=== PATIENT | male | born 1985 | race American Indian/Alaskan Native ===

== ENCOUNTER 2021-04-09 03:32 | Emergency (ER) | payer SELFPAY ==
[2021-04-09 03:56] VITALS: BP 131/76
--- NOTE | 2021-04-09 04:25 | XRay Report ---
Left ankle 3 views INDICATION: Left ankle pain following injury IMPRESSION: No fracture or subluxation is identified. Signer Name: Ridge Blankenship MD Signed: 04/09/2021 4:20 AM Workstation Name: [id number]
[2021-04-09] MEDS ORDERED: ONDANSETRON 4 MG ODT TAB PO ONE (05:32)
[2021-04-09] MEDS ORDERED: IBUPROFEN 600 MG TAB PO ONE (05:32)
[2021-04-09] MEDS ORDERED: HYDROcodone/ACETAMINOPHEN 5-325 MG TAB PO ONE (05:32)
--- NOTE | 2021-04-09 05:37 | Emergency Department Report ---
ED Fall HPI - General Chief Complaint: Extremity Injury, Lower Stated Complaint: FALL/ LEFT ANKLE INJURY Source: patient Mode of arrival: Wheelchair - History of Present Illness Initial Comments: Patient is a 36-year-old -[place] male with no past medical history presents to the ED with complaint of acute onset persistent severe left ankle pain and swelling after he slipped off a chair and fell down twisting his left ankle about 6 hours ago. Patient states that he is unable to bear weight on the left ankle because of severe pain. Patient denies head or neck injuries, back pain, chest pain, shortness of breath, numbness and tingling or weakness of lower extremities bilaterally, hip pain, cough, abdominal pain, change in vision, dizziness or syncope. MD Complaint: fall, other (left ankle pain) -: Sudden, hour(s) (6) Fall From: chair (Fell off a chair and twisted his left ankle) When Fall Occurred: 4-6 hours [employer] Fall Witnessed: yes, by family Place Fall Occurred: home Loss of Consciousness: none Prolonged Down Time?: no Symptoms Prior to Fall: none Location: other (Left ankle pain) Location - Extremities: Left: Ankle (Left ankle pain and swelling) Severity: severe Severity scale (0 -10): 8 Quality: sharp, aching Context: tripped/slipped Associated Symptoms: denies: headache, neck pain, weakness, chest paint, abdominal pain, hematuria, unable to walk, lightheaded, vertigo, confusion - Related Data Previous Rx's Medication Instructions Recorded Last Taken Type Ciprofloxacin HCl [Ciprofloxacin 500 mg PO Q12H #20 tab 02/15/16 Unknown Rx TAB] oxyCODONE /ACETAMINOPHEN [Percocet 1 tab PO TID PRN #15 tablet 02/15/16 Unknown Rx 5/325 mg] Metaxalone [Skelaxin] 800 mg PO TID PRN #21 tablet 03/21/16 Unknown Rx Baclofen 20 mg PO Q12H PRN #20 tablet 04/09/21 Unknown Rx Ibuprofen [Motrin] 800 mg PO Q8HR PRN #30 tablet 04/09/21 Unknown Rx traMADoL [Ultram 50 MG tab] 50 mg PO Q6HR PRN #12 tablet 04/09/21 Unknown Rx Allergies Allergy/AdvReac Type Severity Reaction Status Date / Time No Known Allergies Allergy Unverified 03/06/14 07:28 ED Review of Systems ROS: Stated complaint: FALL/ LEFT ANKLE INJURY Other details as noted in HPI Constitutional: denies: chills, fever Eyes: denies: eye pain, eye discharge, vision change ENT: denies: ear pain, throat pain Respiratory: denies: cough, shortness of breath, wheezing Cardiovascular: denies: chest pain, palpitations Endocrine: no symptoms reported Gastrointestinal: denies: abdominal pain, nausea, diarrhea Genitourinary: denies: urgency, dysuria Musculoskeletal: joint swelling (Left ankle swelling), arthralgia (Left ankle pain and swelling). denies: back pain Skin: denies: rash, lesions Neurological: denies: headache, weakness, paresthesias Psychiatric: denies: anxiety, depression Hematological/Lymphatic: denies: easy bleeding, easy bruising ED Past Medical Hx - Past Medical History Previous Medical History?: No Hx Congestive Heart Failure: No Hx Diabetes: No Hx Asthma: No Hx COPD: No Hx HIV: No - Surgical History Past Surgical History?: No - Social History Smoking Status: Heavy Tobacco Smoker Substance Use Type: None - Medications Home Medications: Home Medications Medication Instructions Recorded Confirmed Last Taken Type Ciprofloxacin HCl [Ciprofloxacin 500 mg PO Q12H #20 tab 02/15/16 Unknown Rx TAB] oxyCODONE /ACETAMINOPHEN [Percocet 1 tab PO TID PRN #15 tablet 02/15/16 Unknown Rx 5/325 mg] Metaxalone [Skelaxin] 800 mg PO TID PRN #21 tablet 03/21/16 Unknown Rx Baclofen 20 mg PO Q12H PRN #20 tablet 04/09/21 Unknown Rx Ibuprofen [Motrin] 800 mg PO Q8HR PRN #30 tablet 04/09/21 Unknown Rx traMADoL [Ultram 50 MG tab] 50 mg PO Q6HR PRN #12 tablet 04/09/21 Unknown Rx ED Physical Exam - General Limitations: Physical Limitation General appearance: alert, in no apparent distress - Head Head exam: Present: atraumatic, normocephalic, normal inspection - Eye Eye exam: Present: normal appearance, PERRL, EOMI Pupils: Present: normal accommodation - ENT ENT exam: Present: normal exam, normal orophraynx, mucous membranes moist, TM's normal bilaterally, normal external ear exam - Neck Neck exam: Present: normal inspection, full ROM - Respiratory Respiratory exam: Present: normal lung sounds bilaterally. Absent: respiratory distress, wheezes, rales, chest wall tenderness, accessory muscle use, decreased breath sounds, prolonged expiratory - Cardiovascular Cardiovascular Exam: Present: regular rate, normal rhythm, normal heart sounds. Absent: systolic murmur, diastolic murmur, rubs, gallop - GI/Abdominal GI/Abdominal exam: Present: soft, normal bowel sounds. Absent: tenderness, guarding, hyperactive bowel sounds, hypoactive bowel sounds - Extremities Exam Extremities exam: Present: normal inspection, tenderness (Palpable severe left ankle tenderness with mild swelling and limited range of motion due to pain), normal capillary refill, joint swelling (Mild left ankle swelling). Absent: full ROM (Limited range of motion of left ankle due to severe pain), pedal edema, calf tenderness - Back Exam Back exam: Present: normal inspection, full ROM. Absent: tenderness, CVA tenderness (L), muscle spasm, paraspinal tenderness, vertebral tenderness - Neurological Exam Neurological exam: Present: alert, oriented X3, CN II-XII intact, normal gait, reflexes normal - Psychiatric Psychiatric exam: Present: normal affect, normal mood - Skin Skin exam: Present: warm, dry, intact, normal color. Absent: rash ED Course Vital Signs 04/09/21 03:54 Temperature 99.4 F Pulse Rate 93 H Respiratory 18 Rate Blood Pressure 131/76 O2 Sat by Pulse 98 Oximetry ED Medical Decision Making - Radiology Data Radiology results: report reviewed, image reviewed [facility] [address] [place] [address] XRay Report Signed Patient: AUTHOR SANIYA CONNELLY MR#: [id number] : 1985 Acct:[id number] Age/Sex: 36 / M ADM Date: 04/09/21 Loc: ED Attending Dr: Ordering Physician: ED MD CUBA Date of Service: 04/09/21 Procedure(s): XR ankle 3+V LT Accession Number(s): [id number] cc: ED MD CUBA Fluoro Time In Minutes: Left ankle 3 views INDICATION: Left ankle pain following injury IMPRESSION: No fracture or subluxation is identified. Signer Name: Ridge Blankenship MD Signed: 04/09/2021 4:20 AM Workstation Name: [id number] Transcribed By: Dictated By: Ridge Blankenship MD Electronically Authenticated By: Ridge Blankenship MD Signed Date/Time: 04/09/21419 DD/ 9 TD/TT: - Medical Decision Making This is a 36-year-old -[place] male with no past medical history presents to the ED with complaint of acute onset persistent severe left ankle pain and swelling after he slipped off a chair and fell down twisting his left ankle about 6 hours ago. Patient states that he is unable to bear weight on the left ankle because of severe pain. In the ED, patient is alert and oriented x3 and is not in any distress but appears to be in significant pain. Patient is however hemodynamically stable. Patient was treated for pain in the ED and left ankle x-ray showed no acute fractures or subluxations. The patient's left ankle was splinted with Toby wrap and the patient given crutches to aid in ambulation. On reevaluation, patient's pain is well controlled medications. Patient was th erefore discharged home on pain medications and advised to follow-up with his primary care physician in 5 to 7 days for reevaluation. Patient was advised return to the ED immediately if symptoms get worse. - Differential Diagnosis Ankle fracture; ankle sprain; ankles muscle strain; ankle contusion Critical care attestation.: If time is entered above; I have spent that time in minutes in the direct care of this critically ill patient, excluding procedure time. ED Disposition Clinical Impression: Severe sprain of left ankle Qualifiers: Encounter type: initial encounter Qualified Code(s): S93.402A - Sprain of unspecified ligament of left ankle, initial encounter Muscle strain of left ankle Qualifiers: Encounter type: initial encounter Qualified Code(s): S96.912A - Strain of unspecified muscle and tendon at ankle and foot level, left foot, initial encounter Disposition: TO HOME OR SELFCARE Is pt being admited?: No Does the pt Need Aspirin: No Condition: Stable Instructions: Ankle Sprain, [id number], Muscle Strain, [id number] Additional Instructions: The left ankle x-ray showed no acute fractures or subluxations. Your injuries likely musculoskeletal due to severe sprain or muscle strain of the left ankle joint. Therefore take medications with food, drink plenty of fluids and follow- up with your primary care physician in 5 to 7 days for reevaluation. Return to the ED immediately if symptoms get worse. Prescriptions: Baclofen 20 mg PO Q12H PRN #20 tablet PRN Reason: Muscle Spasm Ibuprofen [Motrin] 800 mg PO Q8HR PRN #30 tablet PRN Reason: Pain , Severe (7-10) traMADoL [Ultram 50 MG tab] 50 mg PO Q6HR PRN #12 tablet PRN Reason: Pain Referrals: [facility] [Provider Group] - 3-5 Days Forms: Work/School Release Form(ED) Time of Disposition: 05:38 Print Language: GREENLANDIC
== END 2021-04-09 06:01 | disposition home or self-care (01) ==
LOC: ED 03:32
DX: S93.402A Sprain of unspecified ligament of left ankle, initial encounter (principal); S96.912A Strain of unspecified muscle and tendon at ankle and foot level, left foot, initial encounter; F17.200 Nicotine dependence, unspecified, uncomplicated; Z79.899 Other long term (current) drug therapy; W01.0XXA Fall on same level from slipping, tripping and stumbling without subsequent striking against object, initial encounter; Y93.89 Activity, other specified; Y92.89 Other specified places as the place of occurrence of the external cause; Y99.8 Other external cause status
CPT/HCPCS: 99283; Q0162

== ENCOUNTER 2021-07-05 14:34 | Emergency (ER) | payer SELFPAY ==
[2021-07-05] MEDS ORDERED: ASPIRIN 325 MG TAB PO ONE (14:39)
--- NOTE | 2021-07-05 15:05 | Emergency Department Report ---
ED Chest Pain HPI - General Chief Complaint: Chest Pain Stated Complaint: SOB CHEST TIGHT RT ARM HURTS Time Seen by Provider: 07/05/21 14:50 Source: patient Mode of arrival: Ambulatory Limitations: No Limitations - History of Present Illness Initial Comments: 36-year-old male who denies any significant past medical history presents to the ER today with complaints of shortness of breath and chest tightness. Patient states that he noticed that he was short of breath when he woke up in the middle of the night yesterday to use the bathroom. Patient states that the shortness of breath was not any worse or better when he walked to the bathroom, but he states that when he went back to lay down he was having difficulty resting and getting comfortable because he felt short of breath. He states that today he noticed mild substernal chest tightness which he describes as a 1 out of 10. He states that the shortness of breath today is much improved compared to yesterday. He states that he came in because he was concerned and wanted to get checked out. He admits that he was diagnosed with COVID-19 around weekend but during that time he had no chest pain or cough. He denies any diagnosis of pneumonia. He denies any coughing since his symptoms started, as well as denies any nausea, vomiting, or wheezing. He states that he did notice mild right calf pain Friday, but attributed it to him working all day on his feet at work. He denies any lower extremity swelling. He denies any recent travel. Denies any other risk factors for PE/DVT. Patient states that he vapes "a lot". He does drink liquor every other day. He denies any other illicit drug use or marijuana use. He denies any family history of coronary artery disease. MD Complaint: chest pain, other (SOB) -: days(s) (1) - Related Data Previous Rx's Medication Instructions Recorded Last Taken Type Ciprofloxacin HCl [Ciprofloxacin 500 mg PO Q12H #20 tab 02/15/16 Unknown Rx TAB] oxyCODONE /ACETAMINOPHEN [Percocet 1 tab PO TID PRN #15 tablet 02/15/16 Unknown Rx 5/325 mg] Metaxalone [Skelaxin] 800 mg PO TID PRN #21 tablet 03/21/16 Unknown Rx Baclofen 20 mg PO Q12H PRN #20 tablet 04/09/21 Unknown Rx Ibuprofen [Motrin] 800 mg PO Q8HR PRN #30 tablet 04/09/21 Unknown Rx traMADoL [Ultram 50 MG tab] 50 mg PO Q6HR PRN #12 tablet 04/09/21 Unknown Rx Albuterol Mdi (or & Nicu Only) 2 puff IH QID PRN #8.5 gram 07/05/21 Unknown Rx [ProAir HFA Inhaler] Allergies Allergy/AdvReac Type Severity Reaction Status Date / Time No Known Allergies Allergy Unverified 12/16/13 07:28 Heart Score - HEART Score History: Slightly suspicious EKG: Normal Age: < 45 Risk factors: 1-2 risk factors Troponin: < normal limit HEART Score: 1 - EKG Read Time Time EKG Completed: 14:41 EKG Read Time: 14:46 - Critical Actions Critical Actions: 0-3 pts:0.9-1.7%risk of adverse cardiac event.Candidate for discharge ED Review of Systems ROS: Stated complaint: SOB CHEST TIGHT RT ARM HURTS Other details as noted in HPI Comment: All other systems reviewed and negative Constitutional: denies: chills, fever Eyes: denies: eye pain, eye discharge, vision change ENT: denies: ear pain, throat pain, dental pain, hearing loss, epistaxis, congestion Respiratory: shortness of breath. denies: cough, wheezing Cardiovascular: chest pain. denies: palpitations, dyspnea on exertion, orthopnea, edema, syncope, paroxysmal nocturnal dyspnea Gastrointestinal: denies: abdominal pain, nausea, diarrhea, constipation, hematemesis, melena, hematochezia Genitourinary: denies: urgency, dysuria, frequency, hematuria, discharge, testicular pain, testicular mass Musculoskeletal: denies: back pain, joint swelling, arthralgia Skin: denies: rash, lesions, change in color, change in hair/nails, pruritus Neurological: denies: headache, weakness, numbness, paresthesias, confusion, abnormal gait, vertigo Psychiatric: denies: anxiety, depression, auditory hallucinations, visual hallucinations, homicidal thoughts, suicidal thoughts Hematological/Lymphatic: denies: easy bleeding, easy bruising ED Past Medical Hx - Past Medical History Previous Medical History?: No Hx Congestive Heart Failure: No Hx Diabetes: No Hx Asthma: No Hx COPD: No Hx HIV: No - Surgical History Past Surgical History?: No - Social History Smoking Status: Heavy Tobacco Smoker Substance Use Type: None - Medications Home Medications: Home Medications Medication Instructions Recorded Confirmed Last Taken Type Ciprofloxacin HCl [Ciprofloxacin 500 mg PO Q12H #20 tab 02/15/16 Unknown Rx TAB] oxyCODONE /ACETAMINOPHEN [Percocet 1 tab PO TID PRN #15 tablet 02/15/16 Unknown Rx 5/325 mg] Metaxalone [Skelaxin] 800 mg PO TID PRN #21 tablet 03/21/16 Unknown Rx Baclofen 20 mg PO Q12H PRN #20 tablet 04/09/21 Unknown Rx Ibuprofen [Motrin] 800 mg PO Q8HR PRN #30 tablet 04/09/21 Unknown Rx traMADoL [Ultram 50 MG tab] 50 mg PO Q6HR PRN #12 tablet 04/09/21 Unknown Rx Albuterol Mdi (or & Nicu Only) 2 puff IH QID PRN #8.5 gram 07/05/21 Unknown Rx [ProAir HFA Inhaler] ED Physical Exam - General Limitations: No Limitations General appearance: alert, in no apparent distress - Head Head exam: Present: atraumatic, normocephalic, normal inspection - Eye Eye exam: Present: normal appearance, PERRL, EOMI Pupils: Present: normal accommodation - ENT ENT exam: Present: normal exam, mucous membranes moist - Neck Neck exam: Present: normal inspection, full ROM. Absent: meningismus - Respiratory Respiratory exam: Present: normal lung sounds bilaterally. Absent: respiratory distress, wheezes, rales, rhonchi, stridor - Cardiovascular Cardiovascular Exam: Present: regular rate, normal rhythm, normal heart sounds - GI/Abdominal GI/Abdominal exam: Present: soft. Absent: distended, tenderness, guarding, rebound - Extremities Exam Extremities exam: Present: normal inspection, full ROM, normal capillary refill. Absent: pedal edema, calf tenderness - Neurological Exam Neurological exam: Present: alert, oriented X3, CN II-XII intact, normal gait - Psychiatric Psychiatric exam: Present: normal affect, normal mood - Skin Skin exam: Present: intact ED Course Vital Signs 07/05/21 07/05/21 14:38 15:19 Temperature 98.2 F Pulse Rate 83 88 Respiratory 18 19 Rate Blood Pressure 147/92 Blood Pressure 135/88 [Right] O2 Sat by Pulse 97 99 Oximetry ED Medical Decision Making - Lab Data Result diagrams: 07/05/21 14:49 07/05/21 14:49 - EKG Data EKG shows normal: sinus rhythm Rate: normal (69) - EKG Data Interpretation: normal EKG - Radiology Data Radiology results: report reviewed Patient: AUTHOR SANIYA CONNELLY MR#: [id number] : 1985 Acct:[id number] Age/Sex: 36 / M ADM Date: 07/05/21 Loc: ED Attending Dr: Ordering Physician: AZAR GUTIERREZ MD Date of Service: 07/05/21 Procedure(s): XR chest 1V ap Accession Number(s): [id number] cc: AZAR GUTIERREZ MD Fluoro Time In Minutes: CHEST 1 VIEW 07/05/2021 3:09 PM INDICATION / CLINICAL INFORMATION: Chest pain. COMPARISON: None available. FINDINGS: SUPPORT DEVICES: None. HEART / MEDIASTINUM: The heart size and pulmonary vasculature are normal. The aorta is normal in caliber. LUNGS / PLEURA: No significant pulmonary or pleural abnormality. No pneumothorax. ADDITIONAL FINDINGS: No significant additional findings. IMPRESSION: No acute findings. Signer Name: Riley Sampson MD Signed: 07/05/2021 3:40 PM Workstation Name: [id number] Transcribed By: RT Dictated By: Riley Sampson MD Electronically Authenticated By: Riley Sampson MD Signed Date/Time: 07/05/211539 DD/ 154 TD/TT: - Medical Decision Making 36-year-old male who denies any significant past medical history presents to the ER today with complaints of shortness of breath and chest tightness. Patient states that he noticed that he was short of breath when he woke up in the middle of the night yesterday to use the bathroom. Patient states that the shortness of breath was not any worse or better when he walked to the bathroom, but he states that when he went back to lay down he was having difficulty resting and getting comfortable because he felt short of breath. He states that today he noticed mild substernal chest tightness which he describes as a 1 out of 10. He states that the shortness of breath today is much improved compared to yesterday. He states that he came in because he was concerned and wanted to get checked out. He admits that he was diagnosed with COVID-19 around but during that time he had no chest pain or cough. He denies any diagnosis of pneumonia. He denies any coughing since his symptoms started, as well as denies any nausea, vomiting, or wheezing. He states that he did notice mild right calf pain Friday, but attributed it to him working all day on his feet at work. He denies any lower extremity swelling. He denies any recent travel. Denies any other risk factors for PE/DVT. Patient states that he vapes "a lot". He does drink liquor every other day. He denies any other illicit drug use or marijuana use. He denies any family history of coronary artery disease. Patient currently resting comfortably sitting up in the chair. He is not in any acute pain or respiratory distress. He is not toxic or ill-appearing. He is neurologically intact with a normal gait. Vital signs are stable. All labs reviewed, CBC and CMP unremarkable. Troponin x2 -. Chest x-ray shows nothing acute. D-dimer normal. EKG shows normal sinus rhythm with a heart rate of 69 without any STEMI, or other acute ischemic changes or significant dysrhythmias. Heart score 1. Discussed all lab results including chest x-ray and EKG results with patient. His exam, diagnostic testing and current condition do not suggest that this patient is having acute myocardial infarction, significant arrhythmia, unstable angina, esophageal perforation, pulmonary embolism, aortic dissection, pn eumothorax, severe pneumonia, sepsis or other significant pathology that would warrant further testing, continued ED treatment, admission or cardiology or other specialist consultation at this time. Exact cause of his symptoms at this time unclear. I did recommend follow-up with primary care doctor and research biostatistician for additional evaluation such as outpatient stress test. Patient expressed understanding of all instructions and agree with plan. Patient was stable at time of discharge. Critical care attestation.: If time is entered above; I have spent that time in minutes in the direct care of this critically ill patient, excluding procedure time. ED Disposition Clinical Impression: Nonspecific chest pain, Dyspnea Disposition: HOME / SELF CARE / HOMELESS Is pt being admited?: No Does the pt Need Aspirin: No Condition: Stable Instructions: Shortness of Breath, Adult, [id number], Nonspecific Chest Pain, Adult Additional Instructions: You can use the albuterol MDI as prescribed to help with your shortness of breath. I do recommend that you try to stop vaping as this could be contributing to your symptoms. I recommend that you follow-up with the primary care doctor and research biostatistician listed on your discharge instructions for additional evaluation including outpatient stress test. Return to the ER if your symptoms changes or worsens in any way. Prescriptions: Albuterol Mdi (or & Nicu Only) [ProAir HFA Inhaler] 2 puff IH QID PRN #8.5 gram PRN Reason: Shortness Of Breath Referrals: STEPHANIE GUTIERREZ MD [Staff Physician] - 3-5 Days (Chief Talent Officer) [facility] [Provider Group] - 3-5 Days (Primary care doctor) DAI ESPINAL MD [Staff Physician] - 3-5 Days (Primary care doctor) Forms: Work/School Release Form(ED) Time of Disposition: 19:04 Print Language: TAJIK
[2021-07-05 15:21] VITALS: BP 135/88
[2021-07-05 15:25] LABS: Alanine Aminotransferase 25 units/L (7-56); Albumin 4.7 g/dL (3.9-5); Blood Urea Nitrogen 10 mg/dL (9-20); Calcium 9.3 mg/dL (8.4-10.2); Hemolysis Index 10
[2021-07-05 15:32] LABS: BUN/Creatinine Ratio 14
--- NOTE | 2021-07-05 15:45 | XRay Report ---
CHEST 1 VIEW 07/05/2021 3:09 PM INDICATION / CLINICAL INFORMATION: Chest pain. COMPARISON: None available. FINDINGS: SUPPORT DEVICES: None. HEART / MEDIASTINUM: The heart size and pulmonary vasculature are normal. The aorta is normal in sushma alfred. LUNGS / PLEURA: No significant pulmonary or pleural abnormality. No pneumothorax. ADDITIONAL FINDINGS: No significant additional findings. IMPRESSION: No acute findings. Signer Name: Riley Sampson MD Signed: 07/05/2021 3:40 PM Workstation Name: [id number]
[2021-07-05 17:28] LABS: Eosinophils # (Auto) 0.1 K/mm3 (0.0-0.4); Eosinophils % (Auto) 0.9 % (0.0-4.3); Monocytes # (Auto) 0.5 K/mm3 (0.0-0.8); Monocytes % (Auto) 8.7 % (0.0-7.3)
[2021-07-05 17:30] LABS: Basophils % (Auto) 0.3 % (0.0-1.8); Hematocrit 46.7 % (35.5-45.6); Hemoglobin 15.6 gm/dl (11.8-15.2); Lymphocytes # (Auto) 1.7 K/mm3 (1.2-5.4); Lymphocytes % (Auto) 29.6 % (13.4-35.0); Mean Corpuscular HGB Conc 33 % (32-34); Mean Corpuscular Volume 86 fl (84-94); Platelet Count 210 K/mm3 (140-440); Red Blood Count 5.43 M/mm3 (3.65-5.03)
--- NOTE | 2021-07-06 08:49 | Electrocardiograph Report ---
[facility] Test Date: 2021-07-05 Test Time: 14:41:30 Pat Name: AUTHOR GODWIN Department: Room: Gender: M Package Delivery Room Service Runner: DARBY : 1985 Requested By: AZAR GUTIERREZ Order Number: [id number] Reading MD: Guille Bailey Measurements Intervals [place] Rate: 69 P: 65 OK: 137 QRS: 60 QRSD: 86 T: 46 QT: 377 QTc: 404 Interpretive Statements Sinus rhythm nonspecific st-t Probable left atrial enlargement No previous ECG available for comparison Electronically Signed On 07-06-2021 8:48:40 EDT by Guille Bailey
== END 2021-07-05 19:28 | disposition home or self-care (01) ==
LOC: ED 14:34
DX: R07.89 Other chest pain (principal); R06.00 Dyspnea, unspecified; F17.200 Nicotine dependence, unspecified, uncomplicated; Z79.899 Other long term (current) drug therapy
CPT/HCPCS: 36415; 71045; 80053; 84484; 85025; 85379; 93005; 99284